=== PATIENT | female | born 1950 | race Caucasian/White ===

== ENCOUNTER 2016-05-25 19:44 | Emergency (ER) | payer MEDICAID ==
--- NOTE | 2016-05-25 21:52 | ED Physician Chart ---
Chief Complaint/HPI - Patient Information Date Seen:: 05/25/16 Time Seen:: 21:46 Chief Complaint:: back pains History of Present Illness:: pt c/o muscle tension and aches all over upper back x 3 days. has tried motrin w /o much relief. no cp. no sob. no cough. no dysuria. no cough. no injury. no trauma. no fever, no rash. Allergies:: Allergies Allergy/AdvReac Type Severity Reaction Status Date / Time morphine AdvReac Verified 02/17/16 23:19 Historian:: Patient Review of Systems - Review of Systems General/Constitutional: No fever, No chills, No weight loss, No weakness, No diaphoresis, No edema, No loss of appetite Skin: No skin lesions, No rash, No bruising Head: No headache, No light-headedness Eyes: No loss of vision, No pain, No diplopia ENT: No earache, No nasal drainage, No sore throat, No tinnitus Neck: No neck pain, No swelling, No thyromegaly, No stiffness, No mass noted Cardio Vascular: No chest pain, No palpitations, No PND, No orthopnea, No edema Pulmonary: No SOB, No cough, No sputum, No wheezing GI: No nausea, No vomiting, No diarrhea, No pain, No melena, No hematochezia, No constipation, No hematemesis G/U: No dysuria, No frequency, No hematuria Musculoskeletal: No bone or joint pain, Back pain, No muscle pain Endocrine: No polyuria, No polydipsia Psychiatric: No prior psych history, No depression, No anxiety, No suicidal ideation Hematopoietic: No bruising, No lymphadenopathy Allergic/Immuno: No urticaria, No angioedema Neurological: No syncope, No focal symptoms, No weakness, No paresthesia, No headache, No seizure, No dizziness, No confusion, No vertigo Past Medical History - Past Medical History Past Medical History: Other (prior back pains.) Medication: Reviewed Family Medical History - Family Member Mother History Unknown: Yes Ethnicity: Living Status: Physical Exam - Physical Examination General/Constitutional: Awake, Well-developed, well-nourished, Alert, No distress, GCS 15, Non-toxic appearing, Ambulatory Head: Atraumatic Eyes: Lids, conjuctiva normal, PERRL, EOMI Skin: Nl inspection, No rash, No skin lesions, No ecchymosis, Well hydrated, No lymphadenopathy ENMT: External ears, nose nl, Nasal exam nl, Lips, teeth, gums nl Neck: Nontender, Full ROM w/o pain, No JVD, No nuchal rigidity, No bruit, No mass, No stridor Respiratory: Nl effort/Exclusion, Clear to Auscultation, No Wheeze/Rhonchi/Rales Cardio Vascular: RRR, No murmur, gallop, rubs, NL S1 S2 GI: No tenderness/rebounding/guarding, No organomegaly, No hernia, Normal BS's, Nondistended, No mass/bruits, No McBurney tenderness : No CVA tenderness Extremities: No tenderness or effusion, Full ROM, normal strength in all extremities, No edema, Normal digits & nails Neuro/Psych: Alert/oriented, DTR's symmetric, Normal sensory exam, Normal motor strength, Judgement/insight normal, Mood normal, Normal gait, No focal deficits Misc: No paraspinal tenderness Other Misc comments:: no cva tndrnes back muscles of superspinatur and rhomboids are diffusely tender. pt currently has poor posture/kyphosis. no neuro defecits. ED Septic Shock - . Is Septic Shock (SBP<90, OR Lactate>4 mmol\L) present?: No Reassessment (Disposition) - Reassessment Reassessment Condition:: Improved - Diagnosis Diagnosis:: muscle tension of upper back muscles. - Aftercare/Follow up Instructions Aftercare/Follow-Up Instructions:: Counseled pt regarding lab results/diagnosis & need follow up Medication Prescribed:: rx flexeril. pt to continue using motrin for pain. return if worse... - Patient Disposition Discharge/Transfer:: Home Condition at Disposition:: Improved ED Discharge Plan - Patient Disposition Instructions: Muscle Cramps and Spasms, [id number] Additional Instructions: follow up with your primary medical doctor IRENE take prescribed medications as ordered
== END 2016-05-25 21:50 | disposition home or self-care (01) ==
LOC: ER 19:44
DX: M79.1 Myalgia (principal); Z88.6 Allergy status to analgesic agent
CPT/HCPCS: Z7502

== ENCOUNTER 2016-07-21 16:16 | Emergency (ER) | payer MEDICAID ==
[2016-07-21 16:26] VITALS: BP 148/64
[2016-07-21] MEDS ORDERED: Sodium Chloride 0.9% 1,000 ML IV ONE (16:31)
--- NOTE | 2016-07-21 16:31 | ED Physician Chart ---
Chief Complaint/HPI - Patient Information Date Seen:: 07/21/16 Time Seen:: 16:17 Chief Complaint:: shortness of breath History of Present Illness:: 66-year-old female history of hypertension complains of acute, worsening, constant, severe, shortness of breath 3 days. Has associated upper back and lower neck pain. Allergies:: Allergies Allergy/AdvReac Type Severity Reaction Status Date / Time morphine AdvReac Verified 02/17/16 23:19 Vitals:: Vital Signs - 8 hr 07/21/16 16:26 BP 148/64 Historian:: Patient Review:: Nurse's Note Reviewed Review of Systems - Review of Systems Other: Complete system review otherwise unremarkable except as noted in HPI. Past Medical History - Past Medical History Past Medical History: HTN Family History: None Social History: Non Smoker, No Alcohol, No Drug Use, Other Surgical History: None Psychiatricy History: None Medication: Reviewed Family Medical History - Family Member Mother History Unknown: Yes Ethnicity: Living Status: Physical Exam - Physical Examination Other:: INITIAL VITAL SIGNS: Reviewed by me GENERAL: Alert and interactive. No acute distress HEAD: Head is normocephalic and atraumatic EYES: EOMI. . No scleral icterus. No conjunctival injection ENT: Moist mucous membranes. NECK: Supple. No masses. Full range of motion RESPIRATORY: No tachypnea. Clear breath sounds bilaterally. No wheezing, rales, or rhonchi CV: Regular rate and rhythm. No murmurs, rubs, or gallops ABDOMEN: Soft, non-distended, non-tender. No guarding. No rebound. No masses. EXTREMITIES: No deformity. No cyanosis. No edema. SKIN: Warm and dry. No obvious rashes. NEUROLOGIC: Alert and oriented. Face is symmetric. Speech is normal. Moves all extremities equally. Motor and sensory distally intact. Labs/Radiology/EKG Results - Lab Results Results: Lab Results 07/21/16 07/21/16 07/21/16 Range/Units 16:35 16:35 16:40 WBC 6.8 (4.8-10.8) Th/cmm RBC 3.86 (3.80-5.10) Mil/cmm Hgb 9.4 L (11.7-15.5) gm/dL Hct 29.5 L (35.0-45.0) % MCV 76.4 L (81-100) fl MCH 24.3 L (27.0-31.0) pg MCHC Differential 31.8 (28.0-36.0) pg RDW 15.2 (11.5-20.0) % Plt Count 444 H (150-400) Th/cmm MPV 8.0 fl Neutrophils % 70.2 (40.0-80.0) % Lymphocytes % 18.8 L (20.0-50.0) % Monocytes % 9.6 (2.0-10.0) % Eosinophils % 0.9 (0.0-5.0) % Basophils % 0.5 (0.0-2.0) % D-Dimer (100-400) ng/mL Sodium (136-145) mEq/L Potassium (3.5-5.1) mEq/L Chloride (98-107) mEq/L Carbon Dioxide (21.0-31.0) mEq/L Anion Gap (7.0-16.0) BUN (7-25) mg/dL Creatinine (0.6-1.2) mg/dL Est GFR ( Amer) (>90) ml/min Est GFR (Non-Af Amer) ml/min BUN/Creatinine Ratio Glucose (70-105) mg/dL Calcium (8.6-10.3) mg/dL Total Bilirubin (0.3-1.0) mg/dL AST (13-39) U/L ALT (7-52) U/L Alkaline Phosphatase (34-104) U/L Troponin I (0.01-0.05) ng/mL Total Protein (6.0-8.3) gm/dL Albumin (3.7-5.3) gm/dL Globulin gm/dL Albumin/Globulin Ratio (1.0-1.8) Urine Source CLEAN C Urine Color YELLOW Urine Clarity SLIGHT HAZY (CLEAR) Urine pH 7.0 Ur Specific [place] 1.015 (1.005-1.030) Urine Protein NEGATIVE (NEGATIVE) mg/dL Urine Glucose (UA) NEGATIVE (NEGATIVE) mg/dL Urine Ketones NEGATIVE (NEGATIVE) mg/dL Urine Blood TRACE (NEGATIVE) Urine Nitrate NEGATIVE (NEGATIVE) Urine Bilirubin NEGATIVE (NEGATIVE) Urine Urobilinogen 0.2 (0.2 - 1.0) E.U./dL Ur Leukocyte Esterase LARGE H (NEGATIVE) Urine RBC 0-2 (0-5) /hpf Urine WBC 10-25 H (0-5) /hpf Ur Epithelial Cells FEW (FEW) /lpf Urine Bacteria MODERATE (NONE SEEN) /hpf Urine Opiates Screen NEGATIVE (NEGATIVE) Ur Barbiturates Screen NEGATIVE (NEGATIVE) Ur Phencyclidine Scrn NEGATIVE (NEGATIVE) Amphetamines Screen NEGATIVE (NEGATIVE) U Methamphetamines Scrn NEGATIVE (NEGATIVE) U Benzodiazepines Scrn NEGATIVE (NEGATIVE) U Cocaine Metab Screen POSITIVE H (NEGATIVE) U Cannabinoids Screen NEGATIVE (NEGATIVE) 07/21/16 07/21/16 07/21/16 Range/Units 16:40 16:40 16:40 WBC (4.8-10.8) Th/cmm RBC (3.80-5.10) Mil/cmm Hgb (11.7-15.5) gm/dL Hct (35.0-45.0) % MCV (81-100) fl MCH (27.0-31.0) pg MCHC Differential (28.0-36.0) pg RDW (11.5-20.0) % Plt Count (150-400) Th/cmm MPV fl Neutrophils % (40.0-80.0) % Lymphocytes % (20.0-50.0) % Monocytes % (2.0-10.0) % Eosinophils % (0.0-5.0) % Basophils % (0.0-2.0) % D-Dimer 593 H (100-400) ng/mL Sodium 137 (136-145) mEq/L Potassium 3.6 (3.5-5.1) mEq/L Chloride 103 (98-107) mEq/L Carbon Dioxide 25.9 (21.0-31.0) mEq/L Anion Gap 11.7 (7.0-16.0) BUN 14 (7-25) mg/dL Creatinine 0.7 (0.6-1.2) mg/dL Est GFR ( Amer) > 60.0 (>90) ml/min Est GFR (Non-Af Amer) > 60.0 ml/min BUN/Creatinine Ratio 20.0 Glucose 79 (70-105) mg/dL Calcium 9.7 (8.6-10.3) mg/dL Total Bilirubin 0.3 (0.3-1.0) mg/dL AST 19 (13-39) U/L ALT 15 (7-52) U/L Alkaline Phosphatase 80 (34-104) U/L Troponin I < 0.01 L (0.01-0.05) ng/mL Total Protein 7.7 (6.0-8.3) gm/dL Albumin 4.1 (3.7-5.3) gm/dL Globulin 3.6 gm/dL Albumin/Globulin Ratio 1.1 (1.0-1.8) Urine Source Urine Color Urine Clarity (CLEAR) Urine pH Ur Specific [place] (1.005-1.030) Urine Protein (NEGATIVE) mg/dL Urine Glucose (UA) (NEGATIVE) mg/dL Urine Ketones (NEGATIVE) mg/dL Urine Blood (NEGATIVE) Urine Nitrate (NEGATIVE) Urine Bilirubin (NEGATIVE) Urine Urobilinogen (0.2 - 1.0) E.U./dL Ur Leukocyte Esterase (NEGATIVE) Urine RBC (0-5) /hpf Urine WBC (0-5) /hpf Ur Epithelial Cells (FEW) /lpf Urine Bacteria (NONE SEEN) /hpf Urine Opiates Screen (NEGATIVE) Ur Barbiturates Screen (NEGATIVE) Ur Phencyclidine Scrn (NEGATIVE) Amphetamines Screen (NEGATIVE) U Methamphetamines Scrn (NEGATIVE) U Benzodiazepines Scrn (NEGATIVE) U Cocaine Metab Screen (NEGATIVE) U Cannabinoids Screen (NEGATIVE) - Radiology Results Results: Single AP VIEW Portable Chest X-ray was interpreted independently and contemporaneously by David Aparicio MD: No cardiomegaly Pierced have widened mediastinum Questionable left lung infiltrates No pneumothorax No soft tissue or bony abnormalities CT chest with contrast per radiology NAD - EKG Interpretations Comments:: 12-lead EKG Interpretation by David Aparicio MD: Normal Sinus Rhythm with ventricular rate of 70 beats per minute Normal axis Normal intervals No acute ST or T wave changes. No obvious STEMI ED Septic Shock - . Is Septic Shock (SBP<90, OR Lactate>4 mmol\L) present?: No - <6hrs of presentation: Vital Signs: Vital Signs - 8 hr 07/21/16 16:26 BP 148/64 Reassessment (Disposition) - Reassessment Reassessment:: Overall the patient's exam is unremarkable. She is complaining of shortness of breath however she exhibits no signs of shortness of breath. Patient has a slightly elevated d-dimer. CT unremarkable. Cocaine is high positive metabolites in the urine. She does have a UTI. We will prescribe Macrobid for the UTI. However we are obtaining CT scan of the chest with contrast to rule out aortic dissection and to get better definition of the left lobe with questionable infiltrate. Reassessment Condition:: Improved - Diagnosis Diagnosis:: UTI, with hematuria, acute Cocaine abuse Hypertension - Aftercare/Follow up Instructions Aftercare/Follow-Up Instructions:: Counseled pt regarding lab results/diagnosis & need follow up, Refer to Discharge Instructions Medication Prescribed:: Macrobid - Patient Disposition Discharge/Transfer:: Home Time:: 18:37 Condition at Disposition:: Improved ED Discharge Plan - Patient Disposition Admit/Discharge/Transfer: PT DISCHARGED HOME Instructions: Urinary Tract Infection Accepting Physician: Thanh Chery [Active] - 1-3 Days
[2016-07-21] MEDS ORDERED: Prochlorperazine 5 mg/mL 2mL Vial IVP STA (16:32)
[2016-07-21] MEDS ORDERED: Prochlorperazine 5 mg/mL 2mL Vial ONE (16:44)
[2016-07-21] MEDS ORDERED: Albuterol/Ipratropium Neb 3 ML AERS HHN ONE ×2 (16:52→16:58)
[2016-07-21 17:00] LABS: % BASOPHILS 0.5 % (0.0-2.0); % EOSINOPHILS 0.9 % (0.0-5.0); % LYMPHOCYTES 18.8 % (20.0-50.0); % MONOCYTES 9.6 % (2.0-10.0); % NEUTROPHILS 70.2 % (40.0-80.0); HEMATOCRIT 29.5 % (35.0-45.0); HEMOGLOBIN 9.4 gm/dL (11.7-15.5); MEAN CELL VOLUME 76.4 fl (81-100); MEAN CORPUSCULAR HEMOGLOBIN 24.3 pg (27.0-31.0); MEAN CORPUSCULAR HGB CONC 31.8 pg (28.0-36.0); NEUTROPHILE ABSOLUTE 4.7 Th/cmm (1.8-8.0); PLATELET COUNT 444 Th/cmm (150-400); RED BLOOD COUNT 3.86 Mil/cmm (3.80-5.10); RED CELL DISTRIBUTION WIDTH 15.2 % (11.5-20.0); WHITE BLOOD COUNT 6.8 Th/cmm (4.8-10.8)
[2016-07-21 17:09] LABS: CARBON DIOXIDE 25.9 mEq/L (21.0-31.0); CHLORIDE 103 mEq/L (98-107); POTASSIUM SERUM 3.6 mEq/L (3.5-5.1); SODIUM SERUM 137 mEq/L (136-145)
[2016-07-21 17:10] LABS: ALB/GLOB RATIO 1.1 (1.0-1.8); ALKALINE PHOSPHATASE 80 U/L (34-104); ANION GAP 11.7 (7.0-16.0); BILIRUBIN,TOTAL 0.3 mg/dL (0.3-1.0); BUN - UREA NITROGEN 14 mg/dL (7-25); CALCIUM SERUM 9.7 mg/dL (8.6-10.3); CREATININE - SERUM 0.7 mg/dL (0.6-1.2); GLUCOSE 79 mg/dL (70-105); SGOT 19 U/L (13-39); SGPT/ALT 15 U/L (7-52)
[2016-07-21 17:12] LABS: URINE BILIRUBIN NEGATIVE (NEGATIVE); URINE BLOOD TRACE (NEGATIVE); URINE COLOR YELLOW; URINE GLUCOSE (UA) NEGATIVE (NEGATIVE); URINE KETONE NEGATIVE (NEGATIVE); URINE PROTEIN NEGATIVE (NEGATIVE); URINE UROBILINOGEN 0.2 E.U./dL (0.2 - 1.0)
[2016-07-21 17:13] LABS: URINE BACTERIA MODERATE /hpf (NONE SEEN); URINE EPITHELIAL CELLS FEW /lpf (FEW); URINE RBC 0-2 /hpf (0-5)
[2016-07-21 17:17] LABS: AMPHETAMINE URINE NEGATIVE (NEGATIVE); BARBITURATES URINE NEGATIVE (NEGATIVE)
[2016-07-21] MEDS ORDERED: IOHEXOL 300MG/ML 100 ML VIAL PO ONE (17:32)
--- NOTE | 2016-07-22 10:40 | Diagnostic Imaging Report ---
Portable chest x-ray HISTORY: Shortness of breath The heart appears enlarged. There is a large retrocardiac air density situated in the left lower hemithorax. The findings suggest a large hiatal hernia. A CT scan would provide additional clarification no other focal pulmonary processes. IMPRESSION: 1. Findings suggesting a large hiatal hernia. A CT scan would confirm. 2. Cardiomegaly
--- NOTE | 2016-07-22 10:42 | Diagnostic Imaging Report ---
CT scan of the chest with intravenous contrast HISTORY: Shortness of breath, mass Total DLP equals 288 CTDI equals 8.3 Axial sections were obtained from a level above the clavicles down to level below the diaphragm following administration of intravenous contrast. The exam demonstrates a large hiatal hernia with the majority of the stomach above the diaphragm in the left retrocardiac location. Findings correspond to changes noted on a chest radiograph performed earlier in the day. The heart size appears somewhat generous. No other abnormal mediastinal masses. The hilar regions are unremarkable. No acute focal pulmonary parenchymal processes. IMPRESSION: 1. Massive hiatal hernia with the majority of the stomach situated in the left lower hemithorax.
== END 2016-07-21 19:38 | disposition home or self-care (01) ==
LOC: ER 16:16
DX: N39.0 Urinary tract infection, site not specified (principal); R31.9 Hematuria, unspecified; F14.10 Cocaine abuse, uncomplicated; I10 Essential (primary) hypertension; Z88.6 Allergy status to analgesic agent
CPT/HCPCS: 99285; 96374; 96375; 94640; 93005; 71010; 71260; 84484; 36415; 85379; 80300; 85025; 87086; 81001; 80053; J1885; J2405; J0780; J7030; Q9967